=== PATIENT | female | born 1985 | race Hispanic/Latino ===

== ENCOUNTER 2021-08-26 22:23 | Emergency (ER) | payer SELFPAY ==
[2021-08-26 23:25] LABS: Absolute Lymphocytes (CBC) 2.8 K/uL (0.7-4.9); Hematocrit 36.1 % (36.0-45.0); Lymphocytes % 23.3 % (15.3-44.8); MPV 6.6 fL (7.6-11.3); RBC Red Blood Cell Count 4.29 M/uL (3.86-4.86)
[2021-08-26 23:42] LABS: Albumin 3.6 g/dL (3.4-5.0); Bilirubin Total 0.4 mg/dL (0.2-1.0); Potassium 3.5 mmol/L (3.5-5.1); Protein, Total 8.1 g/dL (6.4-8.2)
[2021-08-27 01:55] LABS: Urine Blood 2+ (Negative); Urine Glucose Negative (Negative); Urine Protein Negative (Negative); Urine Specific Gravity 1.015 (1.005-1.030)
[2021-08-27 02:03] LABS: Urine Specific Gravity/Preg 1.015 (1.005-1.030)
--- NOTE | 2021-08-27 04:43 | EDPHYS ---
Physician Documentation [facility] Name: Maribel Glass Age: 35 yrs Sex: Female : 1985 Arrival Date: 08/26/2021 Time: 22:27 Bed 5 Private MD: ED Physician Steven Turner HPI: 08/26 23:41 This 35 yrs old Female presents to ER via Ambulatory with complaints of ms3 Constipation, Headache. 23:41 The patient presents with abdominal pain in the epigastric area. The patient presents ms3 with abdominal pain in the right upper quadrant. Onset: The symptoms/episode began/occurred acutely, 2 day(s) ago. The symptoms do not radiate. Associated signs and symptoms: Pertinent positives: nausea, Pertinent negatives: vomiting. The symptoms are described as constant. Modifying factors: The symptoms are alleviated by nothing, the symptoms are aggravated by nothing. Severity of pain: At its worst the pain was moderate in the emergency department the pain is unchanged is a / 10. 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 - Social history:: Smoking status: Patient denies any tobacco usage or history of. ROS: 23:41 Constitutional: Negative for fever, and chills. Neck: Negative for injury, pain, and ms3 swelling, Cardiovascular: Negative for chest pain, and palpitations. Respiratory: Negative for shortness of breath, cough, wheezing, and pleuritic chest pain. 23:41 Skin: Negative for injury, rash, and discoloration, Psych: Negative for depression, anxiety, suicide ideation, homicidal ideation, and hallucinations. 23:41 Abdomen/GI: Positive for abdominal pain, nausea. 23:41 Neuro: Positive for headache. 23:41 All other systems are negative. Exam: 23:41 Constitutional: This is a well developed, well nourished patient who is awake, alert, ms3 and in no acute distress. Head/Face: Normocephalic, atraumatic. Chest/axilla: Normal chest wall appearance and motion. Nontender with no deformity. Cardiovascular: Regular rate and rhythm with a normal S1 and S2. No gallops, murmurs, or rubs. Normal PMI, no JVD. No pulse deficits. Respiratory: Lungs have equal breath sounds bilaterally, clear to auscultation and percussion. No rales, rhonchi or wheezes noted. No increased work of breathing, no retractions or nasal flaring. Back: No spinal tenderness. No costovertebral tenderness. Full range of motion. Skin: Warm, dry with normal turgor. Normal color with no rashes, no lesions, and no evidence of cellulitis. Psych: Awake, alert, with orientation to person, place and time. Behavior, mood, and affect are within normal limits. 23:41 Abdomen/GI: Inspection: abdomen appears normal, Bowel sounds: normal, Palpation: moderate abdominal tenderness, in the right upper quadrant. Vital Signs: 23:00 BP 118 / 86; Pulse 96; Resp 18; Temp 99.3(O); Pulse Ox 100% on R/A; Weight 72.57 kg; tw5 Height 5 ft. 5 in. (165.10 cm); Pain 4/10; 06/03 00:25 BP 107 / 78; Pulse 77; Resp 18 S; Pulse Ox 100% on R/A; as6 02:00 BP 102 / 68; Pulse 87; Resp 18 S; Pulse Ox 100% on R/A; as6 04:00 BP 105 / 79; Pulse 86; Resp 20 S; Pulse Ox 100% on R/A; as6 08/26 23:00 Body Mass Index 26.63 (72.57 kg, 165.10 cm) tw5 MDM: 08/26 23:08 Patient medically screened. ms3 23:41 Differential diagnosis: cholecystitis, Cholelithiasis, pancreatitis. ms3 08/27 04:45 Data reviewed: vital signs, nurses notes, lab test result(s), radiologic studies, CT ms3 scan, ultrasound. Data interpreted: Pulse oximetry: on room air is 100 %. Interpretation: normal. Counseling: I had a detailed discussion with the patient and/or guardian regarding: the historical points, exam findings, and any diagnostic results supporting the discharge/admit diagnosis, lab results, radiology results, the need for outpatient follow up, to return to the emergency department if symptoms worsen or persist or if there are any questions or concerns that arise at home, via [facility] #[id number]. Special discussion: I discussed with the patient the need to follow-up with the PCP/specialist for the noted incidental finding on X-ray/CT scanning. ED course: Discussed labs, CT, US, physical exam findings with patient. Patient to follow-up with Dr. Hoyos in 2 to 3 days. Patient understands and agrees with plan. All questions were answered. Return precautions discussed include worsening symptoms, or any other concerns. On reevaluation patient symptoms improved, patient is alert and oriented x4, no apparent distress, nontoxic, ambulatory in emergency department.. 08/26 23:07 Order name: CBC with Diff; Complete Time: 23:48 ms3 08/26 23:07 Order name: CMP; Complete Time: 23:48 ms3 08/26 23:07 Order name: Lipase; Complete Time: 23:48 ms3 08/26 23:07 Order name: Abdomen Limited US ms3 08/27 01:55 Order name: Urine --Ancillary (enter results); Complete Time: 02:14 mw2 08/27 01:55 Order name: Urine Dipstick-Ancillary; Complete Time: 02:14 EDMS 08/26 23:07 Order name: IV Saline Lock; Complete Time: 23:17 ms3 08/26 23:07 Order name: Labs collected and sent; Complete Time: 23:17 ms3 08/27 01:14 Order name: CT Abd/Pelvis - IV Contrast Only ms3 08/27 01:54 Order name: Urine Dipstick-Ancillary (obtain specimen); Complete Time: 01:55 kd3 08/27 01:54 Order name: Urine Test (obtain specimen); Complete Time: 01:55 kd3 Administered Medications: No medications were administered Disposition Summary: 08/27/21 04:43 Discharge Ordered Location: Home ms3 Condition: Stable ms3 Diagnosis - Colitis ms3 - Upper abdominal pain, unspecified ms3 Followup: ms3 - With: Edgar Hoyos DO - When: 2 - 3 days - Reason: Re-evaluation by your physician Discharge Instructions: - Discharge Summary Sheet ms3 - Colitis ms3 Forms: - Medication Reconciliation Form ms3 - Thank You Letter ms3 - Antibiotic Education ms3 - Prescription Opioid Use ms3 Prescriptions: - Augmentin 875-125 mg Oral Tablet - take 1 tablet by ORAL route every 12 hours for 10 days; 20 tablet; Refills: 0, ms3 Product Selection Permitted Signatures: Dispatcher [employer] Steven Patino DO DO ms3 Sigrid Crum tw5 Gertrude Hernandez, RN RN kd3
--- NOTE | 2021-08-27 04:43 | ER ---
Nurse's Notes [facility] Name: Maribel Glass Age: 35 yrs Sex: Female : 1985 Arrival Date: 08/26/2021 Time: 22:27 Bed 5 Private MD: Diagnosis: Colitis;Upper abdominal pain, unspecified Presentation: 08/26 23:00 Chief complaint: Patient states: [employer] used [address] - Patient main complaint is tw5 constipation with subjective fever. Patient states that she is having pain in her stomach from the top to the bottom. Patient denies pain with urination. Headache that started yesterday, yesterday medication was helping, but tonight it wasn't. Constipation started yesterday as well. Coronavirus screen: Vaccine status: Patient reports being unvaccinated. Ebola Screen: Patient negative for fever greater than or equal to 101.5 degrees Fahrenheit, and additional compatible Ebola Virus Disease symptoms Patient denies exposure to infectious person. Patient denies travel to an Ebola-affected area in the 21 days before illness onset. Initial Sepsis Screen: Does the patient meet any 2 criteria? HR > 90 bpm. Does the patient have a suspected source of infection? Yes: Acute abdominal pain. Risk Assessment: Do you want to hurt yourself or someone else? Patient reports no desire to harm self or others. Onset of symptoms was August 25, 2021. 23:00 Method Of Arrival: Ambulatory tw5 23:00 Acuity: JANNA 3 tw5 Triage Assessment: 23:07 General: Appears in no apparent distress. Behavior is calm, cooperative, appropriate tw5 for age. Pain: Complains of pain in abdomen Pain currently is 4 out of 10 on a pain scale. GI: Reports constipation. 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 - Social history:: Smoking status: Patient denies any tobacco usage or history of. Screenin:17 Abuse screen: Denies threats or abuse. Denies injuries from another. Nutritional as6 screening: No deficits noted. Tuberculosis screening: No symptoms or risk factors identified. Fall Risk None identified. Assessment: 23:41 General: Appears uncomfortable, Behavior is cooperative, restless. Pain: Complains of as6 pain in abdomen. Neuro: Gonzalez Agitation-Sedation Scale (RASS): +1 Restless Level of Consciousness is awake, alert, obeys commands, Oriented to person, place, time, situation, Reports headache. Cardiovascular: JVD is absent Patient's skin is warm and dry. Respiratory: Respiratory effort is even, unlabored, Respiratory pattern is regular, symmetrical. GI: Abd is soft Abdomen is tender to palpation Reports lower abdominal pain, upper abdominal pain, constipation, nausea. Vital Signs: 23:00 BP 118 / 86; Pulse 96; Resp 18; Temp 99.3(O); Pulse Ox 100% on R/A; Weight 72.57 kg; tw5 Height 5 ft. 5 in. (165.10 cm); Pain 4/10; 03 00:25 BP 107 / 78; Pulse 77; Resp 18 S; Pulse Ox 100% on R/A; as6 02:00 BP 102 / 68; Pulse 87; Resp 18 S; Pulse Ox 100% on R/A; as6 04:00 BP 105 / 79; Pulse 86; Resp 20 S; Pulse Ox 100% on R/A; as6 08/26 23:00 Body Mass Index 26.63 (72.57 kg, 165.10 cm) tw5 ED Course: 08/26 22:27 Patient arrived in ED. bp1 22:50 Steven Turner DO is Attending Physician. ms3 22:58 Gertrude Hernandez, NATACHA is Primary Nurse. kd3 23:07 Triage completed. tw5 23:07 Arm band placed on Patient placed in an exam room. tw5 23:17 Bed in low position. Call light in reach. Side rails up X 1. Pulse ox on. NIBP on. as6 23:17 Inserted saline lock: 18 gauge in right antecubital area, using aseptic technique. as6 Blood collected. 08/27 02:11 CT Abd/Pelvis - IV Contrast Only In Process Unspecified. EDMS 03:59 Abdomen Limited US In Process Unspecified. EDMS 04:41 Edgar Hoyos DO is Referral Physician. ms3 04:54 No provider procedures requiring assistance completed. IV discontinued, intact, as6 bleeding controlled, No redness/swelling at site. Pressure dressing applied. Administered Medications: No medications were administered Medication: 00:25 VIS not applicable for this client. as6 Outcome: 04:43 Discharge ordered by . ms3 04:54 Discharged to home ambulatory, with family. as6 04:54 Condition: stable 04:54 Discharge instructions given to patient, family, Instructed on discharge instructions, follow up and referral plans. medication usage, Demonstrated understanding of instructions, follow-up care, medications, Prescriptions given X 1. 04:56 Patient left the ED. as6 Signatures: Dispatcher [employer] EDMS Steven Turner DO DO ms3 Poly Fuchs Tiffany tw5 Dick Tadeo, NATACHA RN as6 Gertrude Hernandez RN RN kd3
[2021-08-27 05:24] VITALS: TEMP 99.3; O2SAT 100
[2021-08-27 05:28] VITALS: BP 105/79
--- NOTE | 2021-08-27 14:27 | RAD REPORT ---
EXAM DESCRIPTION: CT - Abdomen Pelvis W Contrast - 08/27/2021 6:09 am CLINICAL HISTORY: RUQ abdominal pain COMPARISON: 05/14/2017 TECHNIQUE: CT of the abdomen and pelvis performed following IV administration of iodinated contras t. Mild motion artifact. This exam was performed according to our departmental dose-optimization prog abelardo, which includes automated exposure control, adjustment of the mA and/or kV according to patient s ize and/or use of iterative reconstruction technique. FINDINGS: Lung Bases: The visualized lung bases are clear. Bones: No destructive bone lesions identified. Abdomen: Liver: The liver has normal size and density. No intrahepatic biliary dilatation. Gallbladder: No calcified gallstones. Spleen, Pancreas, and Adrenal Glands: The spleen, pancreas, and adrenal glands are unremarkable. Kidneys: No hydronephrosis or obstructing calculus. Vasculature: The aorta and IVC have normal caliber and position. The portal vein is patent. The pro ximal visceral and renal arteries are patent. Stomach: The stomach and duodenum have normal course. Other: No free intraperitoneal air. No free fluid or lymphadenopathy. Pelvis: Bladder: Wall thickening of the urinary bladder. Bowel: Short segment wall thickening with adjacent inflammatory change at the hepatic flexure. Appendix: Normal appendix. Pelvis: Uterus is not enlarged. IMPRESSION: 1. Short segment wall thickening with adjacent inflammatory change at the hepatic flex ure. These findings could be seen with focal colitis. Continued follow-up recommended to exclude othe r causes of short segment circumferential wall thickening. 2. Wall thickening of the urinary bladder. This could be seen with cystitis. Electronically signed by: Finn Villanueva 08/27/2021 2:51 AM CDT Due to temporary technical issues with the PACS/Fluency reporting system, reports are being signed by the in house radiologists without review as a courtesy to insure prompt reporting. The interpreting radiologist is fully responsible for the content of the report.
--- NOTE | 2021-08-27 21:57 | RAD REPORT ---
EXAM DESCRIPTION: US - Abdomen Exam Limited - 08/27/2021 3:57 am CLINICAL HISTORY: The patient is 35 years old and is Female; ABD PAIN TECHNIQUE: Real-time ultrasound of the right upper quadrant with image documentation. COMPARISON: CT abdomen pelvis August 27, 2021. FINDINGS: Gallbladder: No cholelithiasis or sludge. Gallbladder wall thickness 2.2 mm. Common bile duct: Common bile duct 3.0 mm in diameter. Pancreas: Unremarkable as visualized. IMPRESSION: No cholelithiasis or sludge. Electronically signed by: Brittani Moncada MD 08/27/2021 4:15 AM CDT Due to temporary technical issues with the PACS/Fluency reporting system, reports are being signed by the in house radiologists without review as a courtesy to insure prompt reporting. The interpreting radiologist is fully responsible for the content of the report.
== END 2021-08-27 04:56 | disposition home or self-care (01) ==
LOC: ER 22:23
DX: K52.9 Noninfective gastroenteritis and colitis, unspecified (principal)
CPT/HCPCS: 36415; 74177; 76705; 80053; 81003; 81025; 83690; 85025; 99284; Q9967